=== PATIENT | female | born 1995 | race Caucasian/White ===

== ENCOUNTER 2017-05-19 15:50 | Observation (INO) ==
[2017-05-19] MEDS ORDERED: NS 1,000 ML IV ONE (16:02)
[2017-05-19] MEDS ORDERED: SALINE FLUSH 10ml SYRINGE IVF PRN (16:02)
--- OUTSIDE RECORDS SUMMARY | 2017-05-19 16:08 | External Medical Summary | Continuity of Care Document ---
:1995 Author Organization [facility] Address [address] [place], [place] [id number] Phone Care Team Providers Name Role Phone Cristobal Deleon DO Unavailable Unavailable Allergies, Adverse Reactions, Alerts Substance Reaction Severity Status PROCHLORPERAZINE EDISYLATE dystonia Unknown Active PROCHLORPERAZINE MALEATE dystonia Unknown Active tramadol hives Unknown Active Medications Medication Instructions Dosage Effective Dates Status Comments (start - stop) Zoloft 100 mg tablet take 1 tablet by oral 100 MG - Active route every day fluticasone 50 spray 1 spray by - Active mcg/actuation nasal intranasal route spray,suspension every day in each nostril as needed lamotrigine 25 mg take 1 tablet by ORAL 25 MG - Active tablet route 2 times every day trazodone 50 mg take 1 tablet by oral 50 MG - Active tablet route every day at bedtime Problems Condition Effective Dates (start - stop) Clinical Status Endometriosis of pelvic peritoneum Irregular Menses Encounter for oth general cnsl and advice on procreation Contact w and exposure to infect w a sexl mode of transmiss Endometriosis, unspecified Encntr screen for infections w sexl mode of transmiss Encounter for surveillance of injectable contraceptive Encounter for test, result - negative Urinary tract infection, site not specified Benign essential microscopic hematuria Encntr screen for infections w sexl mode of transmiss Encntr screen for infections w sexl mode of transmiss Encounter for surveillance of injectable contraceptive Encounter for surveillance of injectable contraceptive Encounter for test, result - negative Encounter for surveillance of injectable contraceptive Encounter for test, result - negative Irritable Bowel Syndrome Active Endometriosis Active Procedures Procedure Date Office/outpatient visit,est, mod Results Test Name Date and Time Measure Units Reference Range Abnormal Flag Comments Unknown Advance Directives Directive Yes / No Effective Date File Name Unknown Encounters Encounter Practice Location Reason(s) Diagnoses Date Provider Care Team Description For Visit Members Luis Tran Urinary tract Mar- [place] Referring In Womens infection, site not Myranda. Provider: Health ERAN, specifiedBenign 8 [address] Myranda [place] [address] essential Medical K, [address], [facility], hematuria Dr, [facility] [address]RO, [address], [place] [address], [id number], Marc Tran, DWAINE ISIDRO, tel:[phone]. , [place]. tel: tel: [phone] Office/outpa Associates Marc no menses Endometriosis of [place] Referring tient In Womens (chief pelvic Myranda. Provider: visit,est, Health ERAN, complaint) peritoneumIrregular 8 700 Myranda [place] mod [address] MensesEncounter for Medical K, [address], [facility], and advice on Dr, [facility] [address] ISIDRO, procreation 120, [place] [address], , Marc Tarn, DWAINE ISIDRO, tel:[phone]. , [place]. tel: tel: [phone] Luis Tran Endometriosis, [place] Referring In Womens unspecifiedEncntr Myranda. Provider: Health ERAN, screen for 7 [address] Myranda [place] [address] infections w sexl Medical K, [address], [facility] , [facility] [address] ISIDRO, for surveillance of 120, [place] [address], [id number], injectable Marc Tran, contraceptiveEncoun DWAINE ISIDRO, tel: ter for [phone]. test, result , [place]. tel: negative tel: [phone] Luis Tran Encntr screen for [place] Referring In Womens infections w sexl 0-201 Myranda. Provider: David BARILLAS, mode of 6 [address] Myranda [place] [facility], [address] [address], screen for [facility] Ke[place], infections w sexl , [facility] [address] ISIDRO, mode of 120, [place] [address], [id number], transmissEncounter Marc [place], for surveillance of [place], tel:+ injectable [phone]. [facility] , [place]. tel: tel: [phone] Luis Tran Encounter for Lillian Referring In Womens surveillance of [place]. Provider: Health ERAN, injectable 6 [address] Myranda [place] [address] Box contraceptiveEncoun [facility], [address], ter for [facility] [place], test, result , [facility] [address] ISIDRO, negative 120, [place] [address], , Marc Tran, [facility], [place], tel:[phone]. , [place]. tel: tel: [phone] Luis Tran Contact w and Apr- [place] Referring In Womens exposure to infect Myranda. Provider: vanessa Delacruz sexl mode of 6 [address] Myranda [place] PO Box [facility] [place], [address] [address], Harleigh Damion Allison, , [facility] [address] [place], 120, [place] [address], [id number], Marc Tran, [facility], [place], tel: [phone]. , [place]. tel: tel: [phone] Luis Tran Encounter for [place] Referring In Womens surveillance of Myranda. Provider: Health ERAN, injectable 6 700 Myranda [place] [address] contraceptiveEncoun Medical , [address], ter for Harleigh Damion Allison, test, result , [facility] Dr ISIDRO, negative 120, [place] [address], , Marc Tran, [place], [place], tel:[phone]. , [place]. tel: tel: [phone] [facility] [place] Referring In Womens 9-201 Myranda. Provider: Health ERAN, 5 [address] Myranda [place] [address] Medical K, [address], [address], [facility] Dr [place], 120, [place] [address], [id number], Marc Tran, DWAINE IS[place]RO, tel: [phone]. [id number] , [place]. tel: tel: [phone] Family History Family Member Diagnosis Age At Onset No family history of Colon Cancer No family history of Epilepsy Paternal Grandfather Stroke Paternal Grandfather Cardiovascular Disease No family history of Kidney Disease No family history of Uterine Cancer Maternal grandmother Vaginal Cancer No family history of Breast Cancer Father Alcoholism Maternal Grandfather Hypertension Maternal Grandmother Osteoporosis Sister Drug Dependency No family history of Thyroid Disorder No family history of Diabetes No family history of Ovarian Cancer No family history of Lung Disease Immunizations Vaccine Date Status Comments Unknown Payers Payer name Insurance type Covered republican ID Authorization(s) BCBS Out Of State [id number] Social History Type Description Quantity Date Captured Alcohol Use Details Caffeine Use Details soda every other day per day Tobacco Use Status Never smoked tobacco Smoking Status Never smoker Vital Signs Date / Height Weight BMI Pulse Blood Temperature Respiratory Body Head BMI Time: Rate Pressure Rate Surface Circumference percentile Area 146.90 88 123/85 -2018 lbs /min mm[Hg] 1:06 PM Chief Complaint And Reason For Visit Unknown Chief Complaint And Reason For Visit Reason For Referral Reason For Referral Unknown Plan Of Care Date Type Action Status Unknown. Date Type Problem Goal Intervention Status Start Date Unknown. History Of Present Illness Encounter Date Complaint History Of Present Illness no menses Her last Depo Provera injection was in October. She didn't have menses while on it and still hasn't started her menses. She doesn't like the weight she gained with it. They are wanting a . A recent home test was negative. Upon further questioning, she did have 1 day a week ago of bright red bleeding with wiping. She's worried because a previous provider told her she wouldn't be able to get with her h/o endometriosis. She's starting to have some pelvic pain off an on. She saw a GI specialist, who told her that she has IBS and started her on amitriptyline, which she says hasn't helped. A repeat chlamydia with her PCP was negative. Functional Status Encounter Date Functional Assessment Cognitive Assessment Unknown Medications Administered Medication Instructions Dosage Effective Dates (start - stop) Status Comments Drug Treatment Unknown Instructions Date Instruction Additional Information Unknown
--- NOTE | 2017-05-19 16:23 | Emergency Department Report ---
Overdose HPI - General Chief Complaint: Overdose Stated Complaint: overdose; nausea Time Seen by Provider: 05/19/17 16:01 - History of Present Illness HPI Narrative: 21-year-old female presents with intentional overdose. Patient has a prescription for Cyproheptadine 4 mg, she had 45 tablets total. She filled it on May 13, but had not taken any of the medications yet. Therefore a full bottle. She got in an argument with her boyfriend, got angry and took the medication. She spoke with the nurse and said she was not intentionally suicidal , but has some control issues and became so angry that she took it. She has had 1 previous attempt at suicide. She has been admitted to psychiatric hospitals twice. Once at [facility], once in [place]. She does have anxiety as well. Since taking the medication she has had a lot of nausea, no other complaints at this time. She denies drinking any alcohol today. Denies any other medication or illicit drug usage today. Denies any illicit drug usage ever. - Related Data Home Medications Medication Instructions Recorded Confirmed Cyproheptadine [Periactin] 4 mg PO DAILY 04/15/17 05/19/17 Trazodone [Desyrel] 50 mg PO HS 04/15/17 05/19/17 lamoTRIgine [Lamotrigine] 75 mg PO BID 04/15/17 05/19/17 Cyclobenzaprine [Flexeril] 5 mg PO PRN 05/19/17 05/19/17 Famotidine [Pepcid] 40 tab PO DAILY 05/19/17 05/19/17 MedroxyPROGESTERone [Provera] 10 mg PO DAILY 05/19/17 05/19/17 Sertraline [Zoloft] 200 mg PO DAILY 05/19/17 05/19/17 Previous Rx's Medication Instructions Recorded Hydrocodone/APAP 5/325 [[place] 1 tab PO QID PRN #30 tab 04/15/17 5/325] Allergies Allergy/AdvReac Type Severity Reaction Status Date / Time prochlorperazine Allergy Tremors Verified 05/19/17 17:07 [From Compazine] tramadol Allergy Hives Verified 05/19/17 17:07 Review of Systems All systems: reviewed and negative except as stated PFSH Patient Stated Medical History Migraine Yes Heart Murmur Yes Gastroesophageal Reflux Yes Disease Ulcer Yes: HX OF Hx Urinary Tract Infection Yes: hx Bipolar Disorder Yes Depression Yes Post Traumatic Stress Disorder Yes Other Behavioral Health Yes: BORDERLINE PERSONALITY DISORDER Endometriosis Yes - Social History Smoking status: Never smoker Substance use type: does not use Physical Exam - Limitations Limitations: no limitations - General General appearance: alert - Normal Exams: Head:: Normocephalic without trauma Chest/Respirations:: Clear all asher, with good airflow, and symmetry bilaterally Cardiovascular:: Regular rate and rhythm, without murmur or gallop, Pulses 2+ all extremities, capillary refill, <2 seconds all extremities Abdomen:: Bowel sounds positive, soft, non-tender, non-distended, no hepatosplenomegaly, masses or bruits noted Neurological:: Patient is alert, and oriented, cranial nerves, motor/sensory/ cerebellar, exams w/o gross deficits, to observation Psychiatric:: Patient exhibits, appropriate attention, emotion and affect Course Vital Signs Temperature 97.6 F 05/19/17 15:52 Pulse Rate 102 H 05/19/17 15:52 Respiratory Rate 14 05/19/17 15:52 Blood Pressure 132/85 05/19/17 15:52 Pulse Oximetry 96 05/19/17 15:52 Temperature 97.6 F 05/19/17 15:52 Pulse Rate 102 H 05/19/17 16:18 Respiratory Rate 14 05/19/17 15:52 Blood Pressure 132/85 05/19/17 15:52 Pulse Oximetry 96 05/19/17 15:52 Overdose - MDM Narrative Medical decision making narrative: Spoke with poison control--- IVF and observation. benzo then phenobarb if seizure. watch for qrs wider than 100ms, give sodium bicarb bolus 2mg/kg Labs return appropriate and are reviewed.. Hospitalist consult. Patient given 1 L normal saline bolus and is admitted to hospitalist. - Differential Diagnosis Likely: drug overdose - Lab Data Result diagrams: 05/19/17 16:33 05/19/17 16:34 Lab Results 05/19/17 05/19/17 05/19/17 Range/Units 16:33 16:33 16:34 WBC 6.5 (4.5-11.0) T/MM3 RBC 4.71 (4.00-5.20) M/MM3 Hgb 14.0 (12-16) GM/DL Hct 40.6 (36-46) % MCV 86.2 (80-100) UM3 MCH 29.7 (26-34) UUG MCHC 34.5 (31-37) GM/DL RDW Std Deviation 39.6 (36.9-50.2) FL Plt Count 265 (130-400) T/MM3 MPV 10.7 (9.4-12.4) UM3 Immature Gran % (Auto) 0.2 (0.0-0.5) % Neut % (Auto) 62.0 (33-66) % Lymph % (Auto) 30.6 (23-45) % Dale % (Auto) 4.9 (0-9.0) % Eos % (Auto) 2.0 (0-4) % Baso % (Auto) 0.3 (0-2) % Neut # (Auto) 4.1 (1.8-7.7) T/MM3 Lymph # (Auto) 2.0 (1-4.8) T/MM3 Dale # (Auto) 0.3 (0-0.8) T/MM3 Eos # (Auto) 0.1 (0-0.5) T/MM3 Baso # (Auto) 0.0 (0-0.2) T/MM3 Abs Immat Gran (auto) 0.01 (0.00-0.03) T/MM3 Turbidity (0-20) Sodium (134-144) MEQ/L Potassium (3.6-5) MEQ/L Chloride (98-107) MEQ/L Carbon Dioxide (22-30) MEQ/L Anion Gap (5-15) MEQ/L BUN (7-17) MG/DL Creatinine (0.7-1.2) MG/DL GFR Calculation BUN/Creatinine Ratio (6-26) RATIO Glucose (65-110) MG/DL Calculated Osmolality (261-280) MOSM/KG Calcium (8.4-10.2) MG/DL Total Bilirubin (0.20-1.30) MG/DL Icterus Index (0-7) AST (14-36) U/L ALT (9-52) U/L Alkaline Phosphatase (38-126) U/L Creatine Kinase (30-135) U/L Total Protein (6.3-8.2) G/DL Albumin (3.5-5.0) G/DL Globulin (2.4-3.6) G/DL Albumin/Globulin Ratio (1.1-2.2) RATIO Plasma Lactate (0.6-2.2) MMOL/L Serum , Qual Negative (Negative) Specimen Hemolysis (0-25) Ur Collection Type Urine, void-cc/notcc Urine Color Yellow (YELLOW) Urine Clarity Sl cloudy Urine pH 6.0 (5.0-8.0) Ur Specific [place] >=1.030 H (1.015-1.025) Urine Protein Trace A (NEGATIVE) Urine Glucose (UA) Negative (NEGATIVE) Urine Ketones Negative (NEGATIVE) Urine Occult Blood 3+ A (NEGATIVE) Urine Nitrate Negative (NEGATIVE) Urine Bilirubin Negative (NEGATIVE) Urine Urobilinogen 0.2 (NORMAL) EU/DL Ur Leukocyte Esterase Negative (NEGATIVE) Urine RBC 30-50 H (0-3) /HPF Urine WBC 1-3 (0-5) /HPF Ur Squamous Epith Cells 10-20 Urine Bacteria 1+ H (NEGATIVE) Urine Mucus Present Ur Culture Indicated? Cult not indicated Salicylates (2-20) MG/DL Urine Opiates Screen ng/mL Ur Oxycodone Screen ng/mL Urine Methadone Screen ng/mL Ur Propoxyphene Screen ng/mL Acetaminophen (10-30) UG/ML Ur Barbiturates Screen ng/mL U Tricyclic Antidepress ng/mL Ur Phencyclidine Scrn ng/mL Ur Amphetamines Screen ng/mL U Methamphetamines Scrn ng/mL U Benzodiazepines Scrn ng/mL Urine Cocaine Screen ng/mL U Cannabinoids Screen ng/mL Alcohol, Quantitative (<10) MG/DL 05/19/17 05/19/17 05/19/17 Range/Units 16:34 16:34 16:38 WBC (4.5-11.0) T/MM3 RBC (4.00-5.20) M/MM3 Hgb (12-16) GM/DL Hct (36-46) % MCV (80-100) UM3 MCH (26-34) UUG MCHC (31-37) GM/DL RDW Std Deviation (36.9-50.2) FL Plt Count (130-400) T/MM3 MPV (9.4-12.4) UM3 Immature Gran % (Auto) (0.0-0.5) % Neut % (Auto) (33-66) % Lymph % (Auto) (23-45) % Dale % (Auto) (0-9.0) % Eos % (Auto) (0-4) % Baso % (Auto) (0-2) % Neut # (Auto) (1.8-7.7) T/MM3 Lymph # (Auto) (1-4.8) T/MM3 Dale # (Auto) (0-0.8) T/MM3 Eos # (Auto) (0-0.5) T/MM3 Baso # (Auto) (0-0.2) T/MM3 Abs Immat Gran (auto) (0.00-0.03) T/MM3 Turbidity < 20 (0-20) Sodium 147 H (134-144) MEQ/L Potassium 3.7 (3.6-5) MEQ/L Chloride 109 H (98-107) MEQ/L Carbon Dioxide 23 (22-30) MEQ/L Anion Gap 15 (5-15) MEQ/L BUN 10.0 (7-17) MG/DL Creatinine 0.6 L (0.7-1.2) MG/DL GFR Calculation 127 BUN/Creatinine Ratio 17 (6-26) RATIO Glucose 131 H (65-110) MG/DL Calculated Osmolality 283 H (261-280) MOSM/KG Calcium 9.7 (8.4-10.2) MG/DL Total Bilirubin 1.60 H (0.20-1.30) MG/DL Icterus Index < 2 (0-7) AST 24 (14-36) U/L ALT 32 (9-52) U/L Alkaline Phosphatase 55 (38-126) U/L Creatine Kinase 54 (30-135) U/L Total Protein 7.9 (6.3-8.2) G/DL Albumin 4.8 (3.5-5.0) G/DL Globulin 3.1 (2.4-3.6) G/DL Albumin/Globulin Ratio 1.5 (1.1-2.2) RATIO Plasma Lactate 1.4 (0.6-2.2) MMOL/L Serum , Qual (Negative) Specimen Hemolysis < 15 (0-25) Ur Collection Type Urine Color (YELLOW) Urine Clarity Urine pH (5.0-8.0) Ur Specific [place] (1.015-1.025) Urine Protein (NEGATIVE) Urine Glucose (UA) (NEGATIVE) Urine Ketones (NEGATIVE) Urine Occult Blood (NEGATIVE) Urine Nitrate (NEGATIVE) Urine Bilirubin (NEGATIVE) Urine Urobilinogen (NORMAL) EU/DL Ur Leukocyte Esterase (NEGATIVE) Urine RBC (0-3) /HPF Urine WBC (0-5) /HPF Ur Squamous Epith Cells Urine Bacteria (NEGATIVE) Urine Mucus Ur Culture Indicated? Salicylates < 1.0 L Cancelled (2-20) MG/DL Urine Opiates Screen Negative ng/mL Ur Oxycodone Screen Negative ng/mL Urine Methadone Screen Negative ng/mL Ur Propoxyphene Screen Negative ng/mL Acetaminophen < 10 L Cancelled (10-30) UG/ML Ur Barbiturates Screen Negative ng/mL U Tricyclic Antidepress Negative ng/mL Ur Phencyclidine Scrn Negative ng/mL Ur Amphetamines Screen Negative ng/mL U Methamphetamines Scrn Negative ng/mL U Benzodiazepines Scrn Negative ng/mL Urine Cocaine Screen Negative ng/mL U Cannabinoids Screen Negative ng/mL Alcohol, Quantitative <10 (<10) MG/DL Disposition Clinical Impression: Drug overdose, Suicide attempt by multiple drug overdose Disposition: 02 To [facility] Condition: Stable Prescriptions: No Action lamoTRIgine [Lamotrigine] 75 mg PO BID Cyproheptadine [Periactin] 4 mg PO DAILY Hydrocodone/APAP 5/325 [[place] 5/325] 1 tab PO QID PRN #30 tab PRN Reason: Pain Famotidine [Pepcid] 40 tab PO DAILY Cyclobenzaprine [Flexeril] 5 mg PO PRN Sertraline [Zoloft] 200 mg PO DAILY MedroxyPROGESTERone [Provera] 10 mg PO DAILY Trazodone [Desyrel] 50 mg PO HS Time of Disposition: 18:12 - Seen By: physician
--- NOTE | 2017-05-19 16:52 | XRay Report ---
Indication: overdose PROCEDURE: XR chest 1V: Encounter: Initial Comparison: April 15, 2017 FINDINGS: The lungs are clear. There is no abnormal airspace opacity, pleural effusion or pneumothorax identified. The heart size, pulmonary vasculature and mediastinum are within normal limits. No significant skeletal abnormality is seen. IMPRESSION: No acute cardiopulmonary abnormality. .
--- NOTE | 2017-05-19 18:50 | History & Physical Report ---
History of Present Illness Date: 05/19/17 Chief complaint: intentional drug overdose, suicidal ideation HPI: Fabiola Neely is a pleasant 21-year-old female patient of Dr. Deleon who presented to [facility] ED today after an intentional drug overdose. She reports that tonight she got into an argument with her boyfriend and took 45, 4mg tablets of cyproheptadine. She reported that she was not intentionally trying to harm herself stating that she has control issues. She admits to prior suicidal attempt through drug overdose she was hospitalized in [place] for psychiatric treatment. She was also hospitalized at [facility] in December 2016 for severe depression. She states that she has not been taking any of her prescribed medications including her medications for her bipolar disorder, borderline personality disorder and depression for the past month because she was considering becoming . She currently complains of feeling tired and generally weak without other concerns or complaints. Upon arrival to the ED , she was noted to be slightly tachycardic (HR 102). Labs were obtained and were relatively unremarkable with the exception of hypernatremia (Na 147), hyperglycemia (131) and elevated total bilirubin (T. bili 1.6). UA revealed 30- 50 RBC and she states that she started her period today. test was negative. The rest of her evaluation was unremarkable. Dr. Ramires was consulted and she was admitted into observation status in the ICU for further evaluation, close respiratory and cardiac monitoring and monitoring for safety. Her length of stay is not expected to exceed more than 2 over nights. On exam , her mother and her boyfriend are present, but do not contribute to the history. Review of Systems All systems PM: 10-point ROS was reviewed, no additional remarkable complaints except - Constitutional Constitutional: Present: fatigue, weakness. Absent: fever(s), headache(s) - EENMT Eyes: Absent: change in vision, dry eye, photophobia Ears: Absent: ear pain Balance: Absent: falling to one side Nose: Absent: nosebleeds Mouth/Throat: Present: dry mouth. Absent: pain, changes in swallowing - Cardiovascular Cardiovascular: Absent: chest pain, palpitations, syncope, dyspnea on exertion, orthopnea, edema Rhythm: Present: regular rhythm Vascular: Absent: pallor of an extermity, pedal edema - Respiratory Respiratory: Absent: cough, dyspnea, hemoptysis, dyspnea on exertion, wheezing - Gastrointestinal Gastrointestinal: Present: dyspepsia, nausea. Absent: abdominal pain, diarrhea , vomiting - Genitourinary Genitourinary: Absent: dysuria, flank pain, pelvic pain Menstruation: currently menstrual, cycle variable - Musculoskeletal Musculoskeletal: Absent: back pain, deformity - Integumentary/Breasts Integumentary: Absent: rash - Neurological Neurological: Present: weakness. Absent: abnormal speech, confusion, convulsions, dizziness, focal weakness - Psychiatric Psychiatric: Present: anxiety, depression, suicidal ideation. Absent: behavioral changes, hallucinations - Endocrine Endocrine: Absent: flushing, palpitations - Hematologic/Lymphatic Hematologic/Lymphatic: Absent: easy bruising - Allergic/Immunologic Allergic/Immunologic: Absent: seasonal rhinorrhea Past Medical History Patient Stated Medical History Bipolar disorder. PTSD. Borderline personality disorder GERD. History of migraine headaches. PUD. Endometriosis. History of ovarian cysts. Surgical History: Appendectomy. Laproscopic surgery for endometriosis and ovarian cysts. [place] teeth extraction. EGD and colonscopy. Family History Updates: Patient reports significant family history of depression. Grandfather with CAD. Mother is alive and relatively healthy. - Social History Smoking status: Never smoker Substance use type: does not use Alcohol intake frequency: does not drink Housing: house Household members: significant other (boyfriend), family (mom) Current occupational status: unemployed Does patient use chewing tobacco?: No Current residence: Apartment/Private Home Social history: PCP - Dr. Deleon. Psych - Dr. Gabbi Callaway. Medications Home Medications Medication Instructions Recorded Confirmed Type Cyproheptadine [Periactin] 4 mg PO DAILY 04/15/17 05/19/17 History Trazodone [Desyrel] 50 mg PO HS 04/15/17 05/19/17 History lamoTRIgine [Lamotrigine] 75 mg PO BID 04/15/17 05/19/17 History Cyclobenzaprine [Flexeril] 5 mg PO PRN 05/19/17 05/19/17 History Famotidine [Pepcid] 40 tab PO DAILY 05/19/17 05/19/17 History MedroxyPROGESTERone [Provera] 10 mg PO DAILY 05/19/17 05/19/17 History Sertraline [Zoloft] 200 mg PO DAILY 05/19/17 05/19/17 History Allergies Allergy/AdvReac Type Severity Reaction Status Date / Time prochlorperazine Allergy Tremors Verified 05/19/17 17:07 [From Compazine] tramadol Allergy Hives Verified 05/19/17 17:07 Exam Vital Signs: Temperature 97.6 F 05/19/17 15:52 Pulse Rate 102 H 05/19/17 16:18 Respiratory Rate 14 05/19/17 15:52 Blood Pressure 132/85 05/19/17 15:52 Pulse Oximetry 96 05/19/17 15:52 Telemetry Rhythm: Sinus Rhythm Height/Weight/BMI: Height 5 ft 4 in Weight 151 lb 3.794 oz Comments: Patient is seen in ED with mom and boyfriend present. Alert and orientated x 3 and in no apparent distress. - Constitutional Present: no acute distress, well nourished, well developed, cooperative - Routine HEENT Exam Head: Present: normocephalic, atraumatic Eye: Present: PERRL. Absent: conjunctival icterus ENT: Present: mucous membranes dry, oropharynx clear, dentition normal - Routine Neck Exam Present: supple, full ROM, trachea midline - Routine Chest/Breast/Axilla Exam Chest wall: Absent: tenderness - Routine Respiratory Exam Present: CTA bilaterally. Absent: rales, respiratory distress, rhonchi, stridor , wheezes, crackles - Routine Cardiovascular Exam Present: RRR, S1, S2, no murmur - Routine Abdominal Exam Present: soft, normoactive bowel sounds, non distended, non tender. Absent: rebound, guarding - Routine Extremities Exam Present: no edema, non tender, full ROM, pulses intact - Routine Back/Spine/Pelvis Exam Back/Spine: Present: full ROM. Absent: vertebral tenderness - Routine Skin Exam Present: dry, warm. Absent: jaundice Comments: afebrile - Routine Neurological Exam Present: alert, oriented X3, CN II-XII intact, moving all extremities, hearing grossly intact, normal speech. Absent: facial asymmetry - Routine Psychiatric Exam Present: suicidal ideation, cooperative, depressed Results - Labs CBC & Chem 7: 05/19/17 16:33 05/19/17 16:34 - Imaging and Cardiology Chest x-ray Status: image reviewed by me Additional comments: Date of Exam: 05/19/17 Type of Exam(s): XR chest 1V Reason for Exam(s): overdose Indication: overdose FINDINGS: The lungs are clear. There is no abnormal airspace opacity, pleural effusion or pneumothorax identified. The heart size, pulmonary vasculature and mediastinum are within normal limits. No significant skeletal abnormality is seen. IMPRESSION: No acute cardiopulmonary abnormality. Assessment and Plan (1) Intentional overdose of drug in tablet form Current visit: Yes Status: Acute (2) Suicidal behavior with attempted self-injury Current visit: Yes Status: Acute (3) Depression Current visit: Yes Status: Acute Assessment and Plan: Assessment: intentional drug overdose, acute. Suicidal behavior with intent to harm self, acute. Hypernatremia, acute - present on admission. Depression. Bipolar disorder. PTSD. Borderline personality disorder GERD. History of migraine headaches. PUD. Endometriosis. History of ovarian cysts. Plan - 05/19/17 Admit to ICU observation under the care of Dr. Ramires. Monitor closely on suicide precautions. Plan to consult [facility] in AM for for further psychiatric evaluation. ED contacted poison control regarding intentional overdose. Patient took a total of 180mg with the level of toxicity at 5,145mg. Monitor closely on telemetry for increased sedation, respiratory distress and QT prolongation. Continuous pulse oximetry with supplemental oxygen to maintain >90%, weaning as able. Patient may have regular diet while alert. Patient given 1L NS in ED. Will continue NS 100cc/hr for hydration. Monitor closely for signs of urinary retention given anticholinergic side effects of medication. Upon discharge, patient's care will be returned to her PCP, Dr. Deleon. DVT Prophylaxis: SCD's Resuscitation Status: Full Code - Time spent with patient Time with patient PN: 70 minutes - Physician Narrative Physician: other (Dr. Ramires.) Narrative: Date: 05/19/17 Time: 1903 Patient seen and examined independently. Discussed with PA/[employer] and directed plan of care. Patient states she realized she made a mistake immediately after taking medications. She feels tired and "fuzzy" and weak. Soft spoken on exam, Heart RRR Plan: admit to ICU for continuous monitoring. Consult [facility] in am. repeat labs in am. Monitor on tele. Hospital Course Summary Disclaimer: The visit summary below is not to be considered part of the above Progress Note. Hospital Course: Plan - 05/19/17 Admit to ICU observation under the care of Dr. Ramires. Monitor closely on suicide precautions. Plan to consult [facility] in AM for for further psychiatric evaluation. ED contacted poison control regarding intentional overdose. Patient took a total of 180mg with the level of toxicity at 5,145mg. Monitor closely on telemetry for increased sedation, respiratory distress and QT prolongation. Continuous pulse oximetry with supplemental oxygen to maintain >90%, weaning as able. Patient may have regular diet while alert. Patient given 1L NS in ED. Will continue NS 100cc/hr for hydration. Monitor closely for signs of urinary retention given anticholinergic side effects of medication. Upon discharge, patient's care will be returned to her PCP, Dr. Deleon.
[2017-05-19 19:21] VITALS: BMI 26.4
[2017-05-19] MEDS: NS 1,000 ML IV SCH (19:31)
[2017-05-19] MEDS ORDERED: HYDROCODONE/APAP 5mg/325mg TABLET PO PRN (21:49)
[2017-05-20] MEDS: NS 1,000 ML IV SCH (04:28)
--- NOTE | 2017-05-20 09:58 | Progress Note ---
- Date 05/20/17 Subjective: Patient reports she is feeling better this am. Discussed a psych evaluation for her intentional suicide attempt. Patient expresses understanding. She feels like she nearly at her baseline. Objective Vital signs: Temperature 98.2 F 05/20/17 04:00 Pulse Rate 95 05/20/17 06:00 Respiratory Rate 13 05/20/17 06:00 Blood Pressure 117/74 05/20/17 06:00 Pulse Oximetry 99 05/20/17 06:00 Height/Weight/BMI: Height 5 ft 4 in Weight 69.8 kg Body Mass Index 26.4 - Constitutional Present: no acute distress, average body habitus - Routine HEENT Exam Head: Present: normocephalic, atraumatic Eye: Present: EOMI, conjunctivae pink ENT: Present: mucous membranes moist, nares patent - Routine Respiratory Exam Present: CTA bilaterally. Absent: respiratory distress - Routine Cardiovascular Exam Present: RRR, no murmur - Routine Abdominal Exam Present: soft, normoactive bowel sounds, non distended, non tender - Routine Extremities Exam Present: no edema - Routine Skin Exam Present: intact, dry, warm - Routine Neurological Exam Present: alert, oriented X3, CN II-XII intact - Routine Psychiatric Exam Present: normal affect Results - Labs CBC & Chem 7: 05/20/17 04:40 05/20/17 04:40 Assessment and Plan (1) Intentional overdose of drug in tablet form Current visit: Yes Status: Acute (2) Suicidal behavior with attempted self-injury Current visit: Yes Status: Acute (3) Depression Current visit: Yes Status: Acute Assessment and Plan: Assessment: intentional drug overdose, acute. Suicidal behavior with intent to harm self, acute. Hypernatremia, acute - present on admission. Depression. Bipolar disorder. PTSD. Borderline personality disorder GERD. History of migraine headaches. PUD. Endometriosis. History of ovarian cysts. Plan Monitor closely on suicide precautions. Plan to consult psych for further psychiatric evaluation. ED contacted poison control regarding intentional overdose. Patient took a total of 180mg with the level of toxicity at 5,145mg. Monitor closely on telemetry for increased sedation, respiratory distress and QT prolongation. No changes noted. Patient may have regular diet Patient is medically stable Refusing inpatient psych when CM discussed with her Will consult psych for screening Patient is medically stable - Physician Narrative Narrative: Date: 05/20/17 Time: 0950 Hospital Course Summary Disclaimer: The visit summary below is not to be considered part of the above Progress Note. Hospital Course: Plan - 05/19/17 Admit to ICU observation under the care of Dr. Ramires. Monitor closely on suicide precautions. Plan to consult [facility] in AM for for further psychiatric evaluation. ED contacted poison control regarding intentional overdose. Patient took a total of 180mg with the level of toxicity at 5,145mg. Monitor closely on telemetry for increased sedation, respiratory distress and QT prolongation. Continuous pulse oximetry with supplemental oxygen to maintain >90%, weaning as able. Patient may have regular diet while alert. Patient given 1L NS in ED. Will continue NS 100cc/hr for hydration. Monitor closely for signs of urinary retention given anticholinergic side effects of medication. Upon discharge, patient's care will be returned to her PCP, Dr. Deleon. 05/20/17 Monitor closely on suicide precautions. Plan to consult psych for further psychiatric evaluation. ED contacted poison control regarding intentional overdose. Patient took a total of 180mg with the level of toxicity at 5,145mg. Monitor closely on telemetry for increased sedation, respiratory distress and QT prolongation. No changes noted. Patient may have regular diet Patient is medically stable Refusing inpatient psych when CM discussed with her Will consult psych for screening Patient is medically stable
[2017-05-20 14:41] VITALS: BP 148/95; PULSE 116; RESP 47; TEMP 98; O2SAT 99
--- NOTE | 2017-05-20 15:05 | Discharge Summary ---
Discharge Information Date of admission: 05/19/17 17:50 Anticipated date of discharge: 05/20/17 Attending Physician: Amber Ramires MD Primary care physician: Cristobal Deleon Consults: 05/19/17 19:12 Case Management Consult [CONS] Routine Reason For Exam: - Discharge Diagnosis (1) Intentional overdose of drug in tablet form Status: Acute (2) Suicidal behavior with attempted self-injury Status: Acute (3) Depression Status: Acute Intentional overdose - Laboratory Labs: 05/20/17 04:40 05/20/17 04:40 - Radiology Radiology: Date of Exam: 05/19/17 Ordering Provider: Gonzalo Madrigal MD Type of Exam(s): XR chest 1V Reason for Exam(s): overdose Indication: overdose PROCEDURE: XR chest 1V: Encounter: Initial Comparison: April 15, 2017 FINDINGS: The lungs are clear. There is no abnormal airspace opacity, pleural effusion or pneumothorax identified. The heart size, pulmonary vasculature and mediastinum are within normal limits. No significant skeletal abnormality is seen. IMPRESSION: No acute cardiopulmonary abnormality. . History of Present Illness HPI: Fabiola Neely is a pleasant 21-year-old female patient of Dr. Deleon who presented to [facility] ED today after an intentional drug overdose. She reports that tonight she got into an argument with her boyfriend and took 45, 4mg tablets of cyproheptadine. She reported that she was not intentionally trying to harm herself stating that she has control issues. She admits to prior suicidal attempt through drug overdose she was hospitalized in [place] for psychiatric treatment. She was also hospitalized at [facility] in December 2016 for severe depression. She states that she has not been taking any of her prescribed medications including her medications for her bipolar disorder, borderline personality disorder and depression for the past month because she was considering becoming . She currently complains of feeling tired and generally weak without other concerns or complaints. Upon arrival to the ED , she was noted to be slightly tachycardic (HR 102). Labs were obtained and were relatively unremarkable with the exception of hypernatremia (Na 147), hyperglycemia (131) and elevated total bilirubin (T. bili 1.6). UA revealed 30- 50 RBC and she states that she started her period today. test was negative. The rest of her evaluation was unremarkable. Dr. Ramires was consulted and she was admitted into observation status in the ICU for further evaluation, close respiratory and cardiac monitoring and monitoring for safety. Her length of stay is not expected to exceed more than 2 over nights. On exam , her mother and her boyfriend are present, but do not contribute to the history. Objective Vital signs: Temperature 98.0 F 05/20/17 13:00 Pulse Rate 116 H 05/20/17 14:00 Respiratory Rate 47 H 05/20/17 14:00 Blood Pressure 148/95 H 05/20/17 14:00 Pulse Oximetry 99 05/20/17 14:00 Height/Weight/BMI: Height 5 ft 4 in Weight 70.9 kg Body Mass Index 26.4 Hospital Course This is a general summary of the patient's hospital course. For more details refer to the complete medical record. Hospital course: Plan - 05/19/17 Admit to ICU observation under the care of Dr. Ramires. Monitor closely on suicide precautions. Plan to consult [facility] in AM for for further psychiatric evaluation. ED contacted poison control regarding intentional overdose. Patient took a total of 180mg with the level of toxicity at 5,145mg. Monitor closely on telemetry for increased sedation, respiratory distress and QT prolongation. Continuous pulse oximetry with supplemental oxygen to maintain >90%, weaning as able. Patient may have regular diet while alert. Patient given 1L NS in ED. Will continue NS 100cc/hr for hydration. Monitor closely for signs of urinary retention given anticholinergic side effects of medication. Upon discharge, patient's care will be returned to her PCP, Dr. Deleon. 05/20/17 Monitor closely on suicide precautions. Plan to consult psych for further psychiatric evaluation. ED contacted poison control regarding intentional overdose. Patient took a total of 180mg with the level of toxicity at 5,145mg. Monitor closely on telemetry for increased sedation, respiratory distress and QT prolongation. No changes noted. Patient may have regular diet Patient is medically stable Refusing inpatient psych when CM discussed with her Will consult psych for screening Patient is medically stable Psych recommends inpatient treatment. Patient back and forth on willingness. Discussed that she is not safe to go home. Patient agrees to sign paperwork to go to inpatient treatment. Time spent with patient: 25 - 35 minutes Discharge Plan - Discharge Disposition Discharge Date: 05/20/17 Disposition: 65 To Psych Hosp/Unit *Condition: Stable Reason For Visit (Visit label in EMR): intentional overdose, suicidal attempt - Discharge Medications *Discharge Medications: Discontinued lamoTRIgine [Lamotrigine] 75 mg PO BID Cyproheptadine [Periactin] 4 mg PO DAILY Hydrocodone/APAP 5/325 [[place] 5/325] 1 tab PO QID PRN #30 tab PRN Reason: Pain Famotidine [Pepcid] 40 tab PO DAILY Cyclobenzaprine [Flexeril] 5 mg PO PRN Sertraline [Zoloft] 200 mg PO DAILY MedroxyPROGESTERone [Provera] 10 mg PO DAILY Trazodone [Desyrel] 50 mg PO HS - Discharge Packet/Instructions *Diet: regular *Activity: as tolerated *Pain Management/Treatment: as per psych *Wound Care: n/a *Expected Signs/Symptoms: none *Notify Physician if: any concerning symptoms *During Business Hours Contact: PCP *After Business Hours Contact: diamond grader physician or ED *Pending Lab/Results: No Pending Lab - Referrals/Follow Up *Referrals/Follow Up: Cristobal Deleon [Family Provider] - (After d/c from psych ) - Patient Handouts - Dismissal Complete Discharge Instructions are:: Complete Physician Narrative - Narrative Attestation Narrative: Date: 05/20/17 Time: 2266
== END 2017-05-20 16:20 ==
LOC: CCU 15:50 → ED 15:50 → CCU 19:12
PROVIDERS: ADMIT Pediatrics; ATTEND Pediatrics